=== PATIENT | male | born 1940 | race Hispanic/Latino ===

== ENCOUNTER → 2025-07-25 | Outpatient (CLI) | payer OTHER ==
--- NOTE | 2025-07-25 18:00 | HMCSR ---
APPROVED REPORT EXAM: Two-dimensional and M-mode echocardiogram with Doppler and color Doppler. INDICATION ICD: Bradycardia R00.1 2D Dimensions IVSd 1.5 (0.7-1.1cm) LVEF(%) 49.2 (>50%) LVED Vol(simp.) 173.0 mL LVDd 5.5 (3.8-5.6cm) FS(%) 25 % LVES Vol(simp.) 79.0 mL PWd 1.3 (0.7-1.1cm) LA (2D) 4.4 (1.6-4.0cm) LVEF(%, simp.) 54 % IVSs 2.0 cm Ao Root(2D) 4.5 (2.0-3.7cm) LA ESV INDEX (BP) 29.29 mL/m2 LVDs 4.1 (2.5-4.0cm) LVOT diam 2.7 (1.8-2.4cm) PWs 2.0 cm IVC diam 1.7 cm M-Mode Dimensions EPSS 0.5 cm LA (MM) 5.0 (1.6-4.0cm) Ao Root(MM) 4.7 (2.0-3.7cm) Aortic Valve AoV Vmax 1.3 m/s Ao Peak GR 6.7 mmHg LVOT Vmax 0.9 m/s AoV VTI 0.2 m Ao Mean GR 3.6 mmHg LVOT VTI 0.20 m RIGO (VMAX) 4.29 cm2 RIGO (VTI) 4.8 cm2 Mitral Valve MV E Vmax 38.1 cm/s DECEL Time 169 ms MV A Vmax 62.5 cm/s P 1/2 T 40 ms E/A ratio 0.6 MVA (PHT) 5.6 cm2 TDI E/E' Medial 14.6 E/E' Lateral 11.3 Medial E' Peak V 2.61 cm/s Lateral E' Peak V 3.37 cm/s Pulmonary Valve PV Vmax 0.9 m/s PV VTI 0.20 m PV Mean GR 1.7 mmHg PV Peak GR 3.1 mmHg Tricuspid Valve TR Vmax 1.1 m/s RAP (EST) 3 mmHg RVSP 9.2 mmHg TR Peak GR 6.2 mmHg Left Ventricle The left ventricle is normal size. No regional wall motion abnormalities noted. Mild concentric left ventricular hypertrophy. LVEF is 50-55%. The left ventricular diastolic function is normal. Right Ventricle The right ventricle is normal size. The right ventricular systolic function is normal. Atria The left atrium size is normal. The right atrium size is normal. Aortic Valve Aortic valve is trileaflet and opens well. No aortic regurgitation is present. There is no aortic valvular stenosis. Mitral Valve The mitral valve is normal in structure. There is Trace mitral valve regurgitation noted. There is no mitral valve stenosis. Tricuspid Valve The tricuspid valve is normal in structure. There is trace of tricuspid valve regurgitation noted. Pulmonic Valve Pulmonic valve is not well visualized. There is no pulmonic valvular regurgitation. 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 Dilated ascending aorta measuring 4.4cm The IVC is normal in size and collapses >50% with inspiration. Pericardium There is no pericardial effusion. Other Information Quality : Adequate Rhythm : Bradycardia Conclusion The left ventricle is normal size. LVEF is 50-55% with no regional wall motion abnormalities noted. Mild concentric left ventricular hypertrophy. The left ventricular diastolic function is normal. The right ventricular systolic function is normal. Both atria are normal in size. No hemodynamically significant valvular abnormalities. Dilated ascending aorta measuring 4.4cm There is no pericardial effusion.
== END | disposition home or self-care (01) ==
LOC: RAH 12:58
PROVIDERS: ATTEND Internal Medicine
DX: I77.810 Thoracic aortic ectasia (principal); I51.7 Cardiomegaly; R00.1 Bradycardia, unspecified
CPT/HCPCS: 93306